=== PATIENT | female | born 1995 | race African-American/Black ===

== ENCOUNTER 2020-08-10 14:07 | Emergency (ER) | payer OTHER ==
[~2020-08-10 14:07] MED LIST: VENTOLIN HFA18 GM INH
== END 2020-08-10 15:20 | disposition left against medical advice (07) ==
LOC: FER 14:07
DX: R11.2 Nausea with vomiting, unspecified (principal); I10 Essential (primary) hypertension; Z53.8 Procedure and treatment not carried out for other reasons
CPT/HCPCS: 99283